=== PATIENT | female | born 1985 | race Hispanic/Latino ===

== ENCOUNTER 2017-07-05 09:01 | Emergency (ER) | payer MEDICAID ==
[2017-07-05 09:05] VITALS: BP 118/65; PULSE 92; TEMP 97; O2SAT 98
[2017-07-05 09:06] VITALS: BMI 34.7
[2017-07-05 09:23] VITALS: RESP 18
[2017-07-05] MEDS ORDERED: Sodium Chloride 0.9% 1,000 ML IV STA (09:39)
[2017-07-05] MEDS ORDERED: Albuterol-Ipratrop 3 mg / 0.5 (3 ml) UD IH STA (09:45)
[2017-07-05] MEDS ORDERED: Albuterol-Ipratrop 3 mg / 0.5 (3 ml) UD INH STA (09:45)
--- NOTE | 2017-07-05 09:59 | ED PDOC ---
HPI: General Adult Time Seen by Provider: 07/05/17 09:07 Chief Complaint (Nursing): Abdominal Pain Chief Complaint (Provider): Nausea/Vomiting/Diarrhea History Per: Patient History/Exam Limitations: no limitations Onset/Duration Of Symptoms: Days (x4) Current Symptoms Are (Timing): Still Present Additional Complaint(s): Rafaela Cheatham is a 32 year old female with a history of COPD, fibromyalgia, rheumatoid arthritis, and alopecia that presents to the ED with a chief complaint of nausea, vomiting, diarrhea, generalized weakness, chest tightness, and cycles of sweating and chills that she has been experiencing for the past 4 days. Patient additionally states that she has baseline SOB that has worsened with the onset of her symptoms. She denies any cough, congestion, runny nose, abdominal pain, bloody stool, or difficulty urinating. Of Note: Patient reports she smokes 1 pack/day. PMD: [facility] Rx for: Enbrel, Flexeril, Gabapentin, Mobic, Tramadol, Advair, Spiriva Past Medical History Reviewed: Historical Data, Nursing Documentation, Vital Signs Vital Signs: Last Vital Signs Temp 97 F L 07/05/17 09:04 Pulse 92 H 07/05/17 09:04 Resp 18 07/05/17 09:07 BP 118/65 07/05/17 09:04 Pulse Ox 98 07/05/17 10:18 - Medical History PMH: Anxiety, Asthma, Bipolar Disorder, COPD, Fibromyalgia, Rheumatoid Arthritis Other PMH: alopecia - Surgical History Surgical History: Appendectomy Other surgeries: Laparoscopy for endometriosis - Family History Family History: States: Unknown Family Hx - Social History Current smoker - smoking cessation education provided: Yes SMOKER/PACKS PER DAY:: 1 - Immunization History Hx Influenza Vaccination: No - Home Medications Home Medications: Ambulatory Orders Medication Instructions Recorded Albuterol 0.083% [Albuterol 0.083% 2.5 mg IH Q6 #1 neb 04/22/15 Inhal Izzy (2.5 mg/3 ml) UD] Albuterol HFA [Ventolin HFA 90 2 puff IH Q4H PRN #1 inh 06/24/15 mcg/actuation (8 g)] Albuterol 0.5% [Albuterol 0.5% 3 ml IH Q4H PRN #50 neb 07/14/15 Inhal Izzy (2.5 mg/0.5 ml) UD] Albuterol HFA [Ventolin HFA 90 2 puff IH Q4H PRN #1 inh 07/14/15 mcg/actuation (8 g)] Prednisone 60 mg PO DAILY 5 Days tablet 07/14/15 Prednisone [Prednisone] 07/14/15 predniSONE [predniSONE Tab] 25 mg PO TID 07/14/15 - Allergies Allergies/Adverse Reactions: Allergies Allergy/AdvReac Type Severity Reaction Status Date / Time Penicillins Allergy SWELLING Verified 07/05/17 09:20 Review of Systems Constitutional: Positive for: Chills, Sweats, Weakness (generalized) ENT: Negative for: Nose Discharge, Nose Congestion Cardiovascular: Positive for: Other (chest tightness) Respiratory: Positive for: Shortness of Breath. Negative for: Cough Gastrointestinal: Positive for: Nausea, Vomiting, Diarrhea. Negative for: Abdominal Pain, Hematochezia, Hematemesis Genitourinary Female: Negative for: Dysuria Physical Exam - Reviewed Nursing Documentation Reviewed: Yes Vital Signs Reviewed: Yes - Physical Exam Appears: Positive for: Non-toxic, No Acute Distress Head Exam: Positive for: ATRAUMATIC, NORMOCEPHALIC Skin: Positive for: Normal Color, Warm Eye Exam: Positive for: Normal appearance, EOMI, PERRL ENT: Positive for: Normal ENT Inspection. Negative for: Sinus Pain/Drainage, Nasal Congestion Neck: Positive for: Normal, Supple Cardiovascular/Chest: Positive for: Regular Rate, Rhythm. Negative for: Murmur Respiratory: Positive for: Normal Breath Sounds. Negative for: Wheezing Gastrointestinal/Abdominal: Positive for: Normal Exam, Soft. Negative for: Tenderness Back: Positive for: Normal Inspection. Negative for: L CVA Tenderness, R CVA Tenderness Extremity: Positive for: Normal ROM. Negative for: Tenderness, Swelling Neurologic/Psych: Positive for: Alert, Oriented. Negative for: Motor/Sensory Deficits - Laboratory Results Result Diagrams: 07/05/17 09:50 07/05/17 09:50 Interpretation Of Abn Labs: 13 wbc; 914 dimer - ECG ECG: Positive for: Interpreted By Me, Viewed By Me ECG Rhythm: Positive for: Normal QRS, Normal ST Segment, Sinus Rhythm O2 Sat by Pulse Oximetry: 98 (RA) Pulse Ox Interpretation: Normal - Radiology X-Ray: Read By Radiologist X-Ray Interpretation: No Acute Disease - Progress ED Course And Treament: 1236: Stable. AAOx3. Has capacity to make decisions. Refusing to stay for further evaluation, treatment, and ct results. Aware of possible or decreased functioning from chest pain related illness. Will sign AMA. Medical Decision Making Medical Decision Making: Impression: GI Problem Plan: * EKG * Chest X-Ray * CMP * CBC * Lipase * Troponin * Urine Dip * Urine Preg * Duoneb 6 mL INH * Bentyl 10 mg PO * Toradol 15 mg IV * Prednisone 125 mg IV * Zofran 4 mg IV * NaCl 1000 mLs at 1000 mLs/hr * Reevaluation Scribe Attestation: Documented by Betsy Centeno, acting as a scribe for Artis Light MD. Provider Scribe Attestation: All medical record entries made by the Scribe were at my direction and personally dictated by me. I have reviewed the chart and agree that the record accurately reflects my personal performance of the history, physical exam, medical decision making, and the department course for this patient. I have also personally directed, reviewed, and agree with the discharge instructions and disposition. Disposition - Clinical Impression Clinical Impression: Chest pain, Nausea - Patient ED Disposition Is Patient to be Admitted: No Counseled Patient/Family Regarding: Need For Followup - Disposition Referrals: [facility] [Outside] - 07/06/17 Disposition: Against Medical Advice Disposition Time: 12:46 Condition: STABLE Additional Instructions: You are going against medical advice. You are refusing to stay for further evaluation and treatment. Your chest catscan read is not back yet. You could have a chest related problem that can cause or decreased functioning. Return right away for further evaluation and treatment. Instructions: Chest Pain (ED) Forms: [email or web address] (Danish)
[2017-07-05 10:05] LABS: BASO # 0.1 K/uL (0.0-0.2); BASO % 0.5 % (0.0-2.0); EOS # 0.1 K/uL (0.0-0.7); EOS % 0.5 % (0.0-4.0); HEMOGLOBIN 12.6 g/dL (12.0-16.0); LYMPH # 1.9 K/uL (1.0-4.3); LYMPH % 14.4 % (20.0-40.0); MEAN CELL VOLUME 85.6 fl (81.0-99.0); MEAN CORPUSCULAR HEMOGLOBIN 27.7 pg (27.0-31.0); MEAN CORPUSCULAR HGB CONC 32.3 g/dL (33.0-37.0); MEAN PLATELET VOLUME 7.4 fl (7.2-11.7); MONO # 0.5 K/uL (0.0-0.8); MONO % 3.6 % (0.0-10.0); NEUT # 10.5 K/uL (1.8-7.0); RBC 4.56 Mil/uL (3.80-5.20)
[2017-07-05 10:13] LABS: ALBUMIN 4.2 g/dL (3.5-5.0); ALT/SGPT 20 U/L (9-52); AST/SGOT 31 U/L (14-36); BLOOD UREA NITROGEN 12 mg/dl (7-17); CALCIUM 9.6 mg/dL (8.4-10.2); GFR AFRICAN-AMERICAN > 60; GFR NON-AFRICAN AMERICAN > 60; LIPASE 105 U/L (23-300)
[2017-07-05] MEDS ORDERED: Albuterol-Ipratrop 3 mg / 0.5 (3 ml) UD ONE (10:15)
--- NOTE | 2017-07-05 10:38 | RAD ---
HISTORY: pain COMPARISON: Comparison chest 06/24/2015 FINDINGS: LUNGS: No active pulmonary disease. PLEURA: No significant pleural effusion identified, no pneumothorax apparent. CARDIOVASCULAR: Normal. OSSEOUS STRUCTURES: No significant abnormalities. VISUALIZED UPPER ABDOMEN: Normal. OTHER FINDINGS: None. IMPRESSION: No active disease.
[2017-07-05] MEDS ORDERED: Sodium Chloride 0.9% 50 ML IV ONE (11:47)
[2017-07-05] MEDS ORDERED: Iodixanol 320 MG/ML 100 ML BOTTLE IV ONE (11:47)
--- NOTE | 2017-07-05 13:33 | CT ---
PROCEDURE: CT Chest with contrast (Pulmonary Angiogram) HISTORY: chest pain COMPARISON: Comparison made with chest radiograph performed earlier same day. TECHNIQUE: Axial computed tomography images were obtained of the chest in the pulmonary arterial phase of enhancement. Coronal and sagittal reformatted images were created and reviewed. Intravenous contrast dose: 90 cc of Visipaque 320 contrast material Radiation dose: Total exam DLP = 437.46 mGy-cm. This CT exam was performed using one or more of the following dose reduction techniques: Automated exposure control, adjustment of the mA and/or kV according to patient size, and/or use of iterative reconstruction technique. FINDINGS: PULMONARY ARTERIES: The visualized pulmonary trunk, right and left main, lobar, segmental and proximal subsegmental branches of the pulmonary arteries are well opacified with no definitive filling defects seen to suggest acute pulmonary embolus. . AORTA: No acute findings. No thoracic aortic aneurysm. LUNGS: Mild passive/dependent type atelectasis both posterior lung oates. . No focal consolidation. Some very minimal linear scarring left lingular region. . PLEURAL SPACES: Unremarkable. No effusion or pneumothorax. . HEART: Heart size within range of normal. No significant pericardial effusion. LYMPH NODES: Few small nonspecific mediastinal and bilateral hilar lymph nodes are present. There is a small hiatal hernia with slight wall thickening of the distal esophagus. . Central airways are midline and patent. No largest central endoluminal lesions. BONES, CHEST WALL: Unremarkable. No fracture or destructive lesion mild multilevel degenerative spondylosis of the thoracic spine. The the the the OTHER FINDINGS: Unremarkable. IMPRESSION: Unremarkable CT pulmonary angiogram. No pulmonary embolus. . Mild passive type atelectasis both posterior lung oates. .
--- NOTE | 2017-07-06 12:52 | CARD ---
APPROVED REPORT EKG Measurement Heart [id number] <Conclusion> Normal sinus rhythm Normal ECG
== END 2017-07-05 13:03 | disposition left against medical advice (07) ==
LOC: H.ER 09:01
DX: R07.9 Chest pain, unspecified (principal); R11.0 Nausea; F17.210 Nicotine dependence, cigarettes, uncomplicated; Z86.59 Personal history of other mental and behavioral disorders; J44.9 Chronic obstructive pulmonary disease, unspecified; Z88.0 Allergy status to penicillin; M06.9 Rheumatoid arthritis, unspecified; M79.7 Fibromyalgia
CPT/HCPCS: 71045; 71275; 80053; 81025; 83690; 84484; 85025; 85378; 93005; 96361; 96374; 96375; 99284; J1885; J2405; J2765; J2930; J7040; Q9967

== ENCOUNTER 2018-02-26 18:39 | Emergency (ER) | payer MEDICAID ==
[2018-02-26 18:39] VITALS: BMI 34.7
--- NOTE | 2018-02-26 19:40 | ED PDOC ---
HPI: SOB/CHF/COPD Time Seen by Provider: 02/26/18 19:37 Chief Complaint (Nursing): Shortness Of Breath Chief Complaint (Provider): SOB History Per: Patient Additional Complaint(s): 33-year-old female with history of COPD, RA and fibromylagia presents with shortness of breath and dry cough 2 days associated with chest pain and back pain. Patient states earlier today she had temperature of 101.3 but did not take any medicine for this fever. Patient denies recent travel or known sick contacts. She states her entire body from the waste up is in pain. PMD: Dr. Dariel Cassidy Past Medical History Reviewed: Historical Data, Nursing Documentation, Vital Signs Vital Signs: Last Vital Signs Temp 98.2 F 02/26/18 18:41 Pulse 140 H 02/26/18 18:41 Resp 16 02/26/18 18:41 BP 96/58 L 02/26/18 18:41 Pulse Ox 98 02/26/18 19:51 - Medical History PMH: Anxiety, Asthma, Bipolar Disorder, COPD, Fibromyalgia, Rheumatoid Arthritis Other PMH: endometriosis - Surgical History Surgical History: Appendectomy - Family History Family History: States: No Known Family Hx - Living Arrangements Living Arrangements: With Family - Social History Current smoker - smoking cessation education provided: Yes (down to 3 cigarettes per day) Alcohol: None Drugs: Denies - Home Medications Home Medications: Ambulatory Orders Medication Instructions Recorded Albuterol 0.083% [Albuterol 0.083% 2.5 mg IH Q6 #1 neb 04/22/15 Inhal Izzy (2.5 mg/3 ml) UD] Albuterol HFA [Ventolin HFA 90 2 puff IH Q4H PRN #1 inh 06/24/15 mcg/actuation (8 g)] Albuterol 0.5% [Albuterol 0.5% 3 ml IH Q4H PRN #50 neb 07/14/15 Inhal Izzy (2.5 mg/0.5 ml) UD] Albuterol HFA [Ventolin HFA 90 2 puff IH Q4H PRN #1 inh 07/14/15 mcg/actuation (8 g)] Prednisone 60 mg PO DAILY 5 Days tablet 07/14/15 Prednisone [Prednisone] 07/14/15 predniSONE [predniSONE Tab] 25 mg PO TID 07/14/15 - Allergies Allergies/Adverse Reactions: Allergies Allergy/AdvReac Type Severity Reaction Status Date / Time Penicillins Allergy SWELLING Verified 07/05/17 09:20 Wells Criteria for PE - Wells Criteria for Pulmonary Embolism Clinical Signs and Symptoms of DVT: No P.E is #1 Diagnosis, or Equally Likely: No Heart Rate >100: No Immobilization at least 3 days;Surgery previous 4 weeks: No Previous, objectively diagnosed PE or DVT: No Hemoptysis: No Malignancy w/treatment within 6 months, or palliative: No Total Score: 0 Review of Systems ROS Statement: Except As Marked, All Systems Reviewed And Found Negative Constitutional: Positive for: Fever Cardiovascular: Positive for: Chest Pain, Palpitations Respiratory: Positive for: Cough, Shortness of Breath, SOB with Exertion, Wheezing Gastrointestinal: Negative for: Nausea, Vomiting, Abdominal Pain, Diarrhea Genitourinary Female: Negative for: Dysuria, Vaginal Discharge, Vaginal Bleeding Physical Exam - Reviewed Nursing Documentation Reviewed: Yes Vital Signs Reviewed: Yes - Physical Exam Appears: Positive for: Well Head Exam: Positive for: ATRAUMATIC, NORMAL INSPECTION Skin: Positive for: Normal Color. Negative for: Rash Eye Exam: Positive for: Normal appearance Cardiovascular/Chest: Positive for: Regular Rate, Rhythm Respiratory: Positive for: Wheezing (Bilateral inspiratory and expiratory wheezing). Negative for: Rales, Rhonchi Gastrointestinal/Abdominal: Positive for: Soft. 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
[2018-02-26] MEDS ORDERED: Sodium Chloride 0.9% 1,000 ML IV STA (19:43)
[2018-02-26] MEDS ORDERED: Albuterol-Ipratrop 3 mg / 0.5 (3 ml) UD INH STA (19:53)
[2018-02-26] MEDS ORDERED: Albuterol-Ipratrop 3 mg / 0.5 (3 ml) UD ONE ×2 (20:33→20:35)
[2018-02-26 21:12] LABS: VENOUS BLOOD GAS BASE EXCESS 0.3 mmol/L (0.0-2.0); VENOUS BLOOD GAS PCO2 38 mmHg (40-60); VENOUS BLOOD GAS PO2 35 mm/Hg (30-55); VENOUS BLOOD PH 7.42 (7.32-7.43)
[2018-02-26 21:18] LABS: BASO % 0.1 % (0.0-2.0); HEMOGLOBIN 15.2 g/dL (12.0-16.0); LYMPH # 1.8 K/uL (1.0-4.3); LYMPH % 3.7 % (20.0-40.0); MEAN CELL VOLUME 85.8 fl (81.0-99.0); MEAN CORPUSCULAR HEMOGLOBIN 28.2 pg (27.0-31.0); MEAN CORPUSCULAR HGB CONC 32.9 g/dL (33.0-37.0); MEAN PLATELET VOLUME 7.6 fl (7.2-11.7); MONO # 1.9 K/uL (0.0-0.8); MONO % 3.8 % (0.0-10.0); NEUT # 45.7 K/uL (1.8-7.0); NEUT % 92.4 % (50.0-75.0); PLATELET COUNT 406 K/uL (130-400); RED CELL DISTRIBUTION WIDTH 16.9 % (11.5-14.5)
[2018-02-26 21:28] LABS: WHITE BLOOD COUNT 49.5 K/uL (4.8-10.8)
[2018-02-26 21:31] LABS: INR 1.4; PROTHROMBIN TIME 15.4 Seconds (9.8-13.1)
[2018-02-26 21:32] LABS: ALB/GLOB RATIO 0.9 (1.0-2.1); ALT/SGPT 22 U/L (9-52); AST/SGOT 30 U/L (14-36); BLOOD UREA NITROGEN 18 mg/dl (7-17); GFR NON-AFRICAN AMERICAN 57
[2018-02-26 21:33] LABS: PARTIAL THROMBOPLASTIN TIME 31.8 Seconds (25.6-37.1)
[2018-02-26 22:51] LABS: BANDS 6 % (0-2); HYPOCHROMIC SLIGHT; LYMPHOCYTE 13 % (20-50); MICROCYTOSIS SLIGHT; MONOCYTE 5 % (0-10); NEUTROPHIL 76 % (42-75); PLATELET ESTIMATE NORMAL (NORMAL); TOTAL CELLS COUNTED 100
[2018-02-26] MEDS ORDERED: Sodium Chloride 0.9% 50 ML IV ONE (23:09)
[2018-02-26] MEDS ORDERED: Iodixanol 320 MG/ML 100 ML BOTTLE IV ONE (23:09)
[2018-02-27] MEDS ORDERED: Azithromycin 500 MG in Sodium Chloride 0.9% 250 ML IVPB STA (00:47)
[2018-02-27] MEDS ORDERED: levoFLOXacin 750 mg in D5W 750 MG/150 ML BAG IVPB ONE (01:28)
[2018-02-27] MEDS ORDERED: Vancomycin 1 g Inj ONE (01:29)
[2018-02-27 01:47] LABS: HEMOGLOBIN 13.8 g/dL (12.0-16.0); LYMPH # 1.4 K/uL (1.0-4.3); LYMPH % 3.3 % (20.0-40.0); MEAN CELL VOLUME 85.9 fl (81.0-99.0); MEAN CORPUSCULAR HEMOGLOBIN 28.3 pg (27.0-31.0); MEAN CORPUSCULAR HGB CONC 32.9 g/dL (33.0-37.0); MEAN PLATELET VOLUME 7.5 fl (7.2-11.7); MONO # 0.7 K/uL (0.0-0.8); MONO % 1.7 % (0.0-10.0); PLATELET COUNT 359 K/uL (130-400); RBC 4.87 Mil/uL (3.80-5.20); RED CELL DISTRIBUTION WIDTH 16.8 % (11.5-14.5)
[2018-02-27 01:55] LABS: WHITE BLOOD COUNT 43.1 K/uL (4.8-10.8)
[2018-02-27] MEDS: levoFLOXacin 750 mg in D5W 750 MG/150 ML BAG IVPB SCH ×2 (02:48→03:26)
[2018-02-27 02:53] LABS: BANDS 6 % (0-2); LYMPHOCYTE 2 % (20-50); MONOCYTE 3 % (0-10); NEUTROPHIL 89 % (42-75); TOTAL CELLS COUNTED 100
[2018-02-27 02:54] LABS: PLATELET ESTIMATE NORMAL (NORMAL)
[2018-02-27 02:59] VITALS: RESP 19
[2018-02-27 03:54] VITALS: BP 97/57; PULSE 86; TEMP 97.5; O2SAT 97
[2018-02-27] MEDS ORDERED: Albuterol HFA 90 mcg/actuation (8 g) INH PRN (07:29)
[2018-02-27] MEDS ORDERED: Patient's Own Med (Albuterol/Ipratropium [Combivent Respimat] 1 PUFF) INH PRN ×2 (07:29→16:33)
[2018-02-27] MEDS ORDERED: Albuterol 0.083% Inhal Sol (2.5 mg/3 mL) UD INH PRN ×2 (07:29→16:33)
[2018-02-27] MEDS ORDERED: TOCILIZUMAB 162 MG IM SCH ×2 (07:30)
[2018-02-27] MEDS ORDERED: PREGABALIN 225 MG PO SCH ×2 (09:00)
--- NOTE | 2018-02-27 09:32 | CT ---
Date of service: 02/26/2018 PROCEDURE: CT Chest with contrast (Pulmonary Angiogram) HISTORY: tachy, cough, chest pain, elevated ddimer COMPARISON: None available. TECHNIQUE: Axial computed tomography images were obtained of the chest in the pulmonary arterial phase of enhancement. Coronal and sagittal reformatted images were created and reviewed. Intravenous contrast dose: Radiation dose: Total exam DLP = mGy-cm. This CT exam was performed using one or more of the following dose reduction techniques: Automated exposure control, adjustment of the mA and/or kV according to patient size, and/or use of iterative reconstruction technique. FINDINGS: PULMONARY ARTERIES: Unremarkable. No pulmonary embolism. AORTA: No acute findings. No thoracic aortic aneurysm. LUNGS: Extensive atelectasis of the right lower lobe and portions of the middle lobe with distinct fluid collections measuring up to 4.1 centimeters in the right mid lung parenchyma; a mass or abscess PLEURAL SPACES: Large right pleural effusion. HEART: Is not excluded. LYMPH NODES: Extensive right paratracheal and subcarinal lymphadenopathy measuring up to 13 millimeters. BONES, CHEST WALL: Unremarkable. No fracture or destructive lesion OTHER FINDINGS: Unremarkable. IMPRESSION: Extensive atelectasis of the right lower lobe and portions of the middle lobe with distinct fluid collections measuring up to 4.1 centimeters in the right mid lung parenchyma; a mass or abscessLarge right pleural effusion. Extensive right paratracheal and subcarinal lymphadenopathy measuring up to 13 millimeters.
--- NOTE | 2018-02-27 09:52 | RAD ---
Date of service: 02/26/2018 HISTORY: SOB COMPARISON: No prior. FINDINGS: LUNGS: No active pulmonary disease. PLEURA: Large right pleural effusion. CARDIOVASCULAR: Normal. OSSEOUS STRUCTURES: No significant abnormalities. VISUALIZED UPPER ABDOMEN: Normal. OTHER FINDINGS: None. IMPRESSION: Large right pleural effusion.
== END 2018-02-27 06:13 | disposition left against medical advice (07) ==
LOC: H.ER 18:39 → H.ERHOLD 02-27 01:03 → UNDOADMIN 02-27 01:03 → UNDODISIN 02-27 07:07
DX: J90 Pleural effusion, not elsewhere classified (principal)
CPT/HCPCS: 71045; 71275; 80053; 81025; 82803; 84484; 85025; 85378; 85610; 85730; 87040; 96361; 96365; 96367; 96375; 99284; J1885; J2270; J2930; J7030; Q9967

== ENCOUNTER 2018-03-02 08:46 | Emergency (ER) | payer MEDICAID ==
[2018-03-02] MEDS ORDERED: Sodium Chloride 0.9% 1,000 ML IV STA (09:46)
[2018-03-02] MEDS ORDERED: Albuterol-Ipratrop 3 mg / 0.5 (3 ml) UD IH STA (09:46)
[2018-03-02] MEDS ORDERED: Albuterol-Ipratrop 3 mg / 0.5 (3 ml) UD INH STA (09:46)
[2018-03-02] MEDS ORDERED: Azithromycin 500 MG in Sodium Chloride 0.9% 250 ML IVPB ONE (10:00)
[2018-03-02] MEDS ORDERED: Vancomycin 1 g Inj ONE (10:04)
[2018-03-02] MEDS ORDERED: Azithromycin 500 MG IV IVPB ONE (10:04)
--- NOTE | 2018-03-02 10:07 | ED PDOC ---
HPI: SOB/CHF/COPD Time Seen by Provider: 03/02/18 09:26 Chief Complaint (Provider): Dyspnea History Per: Patient History/Exam Limitations: no limitations Onset/Duration Of Symptoms: Days (1 week) Additional Complaint(s): Pt. here with dyspnea. Chest tightness with the dyspnea. Was here earlier and AMA as she did not like the service. Was given antibiotics for pneumonia and had effusion. Pt. here as dyspnea still present. No cough, congestion, runny nose, weakness, abd pain, headache, dizziness. No leg pain, recent travel. No hormone use. Past Medical History Reviewed: Nursing Documentation, Vital Signs - Medical History PMH: Anxiety, Asthma, Bipolar Disorder, COPD, Fibromyalgia, Rheumatoid Arthritis - Surgical History Surgical History: Appendectomy - Family History Family History: States: Unknown Family Hx - Home Medications Home Medications: Ambulatory Orders Medication Instructions Recorded Albuterol 0.083% [Albuterol 0.083% 2.5 mg INH PRN PRN 02/27/18 Inhal Izzy (2.5 mg/3 ml) UD] Albuterol Sulfate [Ventolin Hfa] 2 puff INH BID PRN 02/27/18 Albuterol/Ipratropium [Combivent 1 puff INH PRN PRN 02/27/18 Respimat] Cyclobenzaprine [Flexeril] 10 mg PO TID 02/27/18 Gabapentin [Neurontin] 300 mg PO TID 02/27/18 Meloxicam [Mobic] 15 mg PO DAILY 02/27/18 Pregabalin [Lyrica] 225 mg PO BID 02/27/18 Tocilizumab [Actemra] 162 mg IM QWK 02/27/18 traMADol [Ultram] 50 mg PO Q6 02/27/18 - Allergies Allergies/Adverse Reactions: Allergies Allergy/AdvReac Type Severity Reaction Status Date / Time Penicillins Allergy SWELLING Verified 02/27/18 03:55 Review of Systems ROS Statement: Except As Marked, All Systems Reviewed And Found Negative Cardiovascular: Positive for: Chest Pain Respiratory: Positive for: Shortness of Breath Physical Exam - Reviewed Nursing Documentation Reviewed: Yes Vital Signs Reviewed: Yes - Physical Exam Appears: Positive for: Uncomfortable Head Exam: Positive for: ATRAUMATIC, NORMAL INSPECTION, NORMOCEPHALIC Skin: Positive for: Normal Color, Warm, DRY Eye Exam: Positive for: EOMI, Normal appearance, PERRL ENT: Positive for: Normal ENT Inspection Neck: Positive for: Normal, Painless ROM Cardiovascular/Chest: Positive for: Regular Rate, Rhythm, Chest Non Tender Respiratory: Positive for: Decreased Breath Sounds, Wheezing (b/l trace expiration). Negative for: Accessory Muscle Use, Respiratory Distress Gastrointestinal/Abdominal: Positive for: Normal Exam, Soft. Negative for: Tenderness Back: Positive for: Normal Inspection. Negative for: L CVA Tenderness, R CVA Tenderness Extremity: Positive for: Normal ROM. Negative for: Tenderness, Pedal Edema Neurologic/Psych: Positive for: Alert, Oriented - ECG ECG: Positive for: Interpreted By Me, Viewed By Me ECG Rhythm: Positive for: Sinus Tachycardia (mild) - Radiology X-Ray: Read By Radiologist X-Ray Interpretation: Other (pleural effusion) - Progress ED Course And Treament: 1000: Recent visit where pt. was to be admitted. Got zithromax and vanc for effusion. Pt. ama as she didn't want to stay. [facility] pcp. 1140: Stable. Breathing better. Sats improve to 96% with oxygen and tx. 94% RA. 1151: Stable. Spoke with Harley. Will admit tele inpt and give further orders when pt. reaches floor. AAOx3. Likely effusion, copd exacerbation. Antibiotics to cover. Not likely pneumonia. Has no cough, phlegm, or fever. - Critical Care Total Time (In Min): 30 Documented Critical Care: Time excludes all time spent performint seperately billable procedures Disposition - Clinical Impression Clinical Impression: COPD (chronic obstructive pulmonary disease), Pleural effusion, Hypokalemia - Patient ED Disposition Is Patient to be Admitted: Yes Counseled Patient/Family Regarding: Studies Performed, Diagnosis - Disposition Disposition Time: 11:52 Condition: FAIR - Pt Status Changed To: Hospital Disposition Of: Inpatient - Admit Certification Admit to Inpatient:: After my assessment, the patient will require ho spitalization for at least two midnights. This is because of the severity of symptoms shown, intensity of services needed, and/or the medical risk in this patient being treated as an outpatient. - POA Present On Arrival: None
[2018-03-02 10:08] LABS: BASO % 0.3 % (0.0-2.0); EOS % 6.1 % (0.0-4.0); HEMOGLOBIN 12.3 g/dL (12.0-16.0); LYMPH # 2.8 K/uL (1.0-4.3); MEAN CELL VOLUME 86.6 fl (81.0-99.0); MEAN CORPUSCULAR HGB CONC 33.5 g/dL (33.0-37.0); MEAN PLATELET VOLUME 7.5 fl (7.2-11.7); MONO # 1.3 K/uL (0.0-0.8); MONO % 8.2 % (0.0-10.0); NEUT # 11.2 K/uL (1.8-7.0); NEUT % 68.4 % (50.0-75.0); RBC 4.23 Mil/uL (3.80-5.20); WHITE BLOOD COUNT 16.4 K/uL (4.8-10.8)
[2018-03-02 10:17] LABS: INR 1.3; PROTHROMBIN TIME 13.9 Seconds (9.8-13.1)
[2018-03-02 10:19] LABS: ALB/GLOB RATIO 0.8 (1.0-2.1); ALBUMIN 3.4 g/dL (3.5-5.0); ALT/SGPT 69 U/L (9-52); AST/SGOT 97 U/L (14-36); BLOOD UREA NITROGEN 14 mg/dl (7-17); CALCIUM 8.9 mg/dL (8.4-10.2); GFR NON-AFRICAN AMERICAN > 60
[2018-03-02 10:20] LABS: PARTIAL THROMBOPLASTIN TIME 32.7 Seconds (25.6-37.1)
[2018-03-02 10:27] LABS: B-TYPE NATRIURETIC PEPTIDE 57.6 pg/ml (0-450)
[2018-03-02 10:59] VITALS: BMI 25.7
[2018-03-02] MEDS ORDERED: Potassium Chloride 20 mEq ER Tab PO STA (11:43)
[2018-03-02] MEDS ORDERED: Potassium Chloride 20 mEq ER Tab PO ONE (12:01)
[2018-03-02 12:06] VITALS: BP 117/67; PULSE 88; RESP 22; TEMP 98.6; O2SAT 96
--- NOTE | 2018-03-02 13:02 | CARD ---
APPROVED REPORT Date of service: 03/02/2018 EKG Measurement Heart [id number] <Conclusion> Sinus tachycardia Nonspecific ST abnormality Abnormal ECG
--- NOTE | 2018-03-02 14:04 | RAD ---
Date of service: 03/02/2018 HISTORY: Dyspnea COMPARISON: Chest radiograph dated 02/26/2018 FINDINGS: LUNGS: No active pulmonary disease. PLEURA: Increase in size of large right pleural effusion. No appreciable pneumothorax. CARDIOVASCULAR: Normal. OSSEOUS STRUCTURES: No significant abnormalities. VISUALIZED UPPER ABDOMEN: Normal. OTHER FINDINGS: None. IMPRESSION: Increase in size of large right pleural effusion.
== END 2018-03-02 13:00 | disposition left against medical advice (07) ==
LOC: H.ER 08:46 → H.ERHOLD 11:54 → UNDOADMIN 11:54 → UNDODISIN 13:00
DX: J44.9 Chronic obstructive pulmonary disease, unspecified (principal); J90 Pleural effusion, not elsewhere classified; E87.6 Hypokalemia; Z88.0 Allergy status to penicillin; F41.9 Anxiety disorder, unspecified; F31.9 Bipolar disorder, unspecified; M79.7 Fibromyalgia; M06.9 Rheumatoid arthritis, unspecified
CPT/HCPCS: 71045; 80053; 81025; 83880; 84484; 85025; 85610; 85730; 87040; 87804; 93005; 94640; 96374; 99281; J0456; J2930; J7030